=== PATIENT | female | born 1945 | race Caucasian/White ===

== ENCOUNTER → 2017-09-20 | Outpatient (CLI) | payer OTHER ==
[~2017-09-20] VITALS: Ht 152.4 cm; Wt 86.6 kg
[~2017-09-20] MED LIST: ASPIR 8181 MG PO; CALCIUM500 MG PO; DULCOLAX5 MG PO; FIBER500 MG PO; HYDRALAZINE 2525 MG PO; IRON325 PO; KEPPRA 500 MG500 M1 PO; LAMICTAL100 MG PO; OXYBUTYNIN CHLO15 MG PO; PLAVIX 75 MG TA75 M1 PO; PROBIOTIC1 EAC1 PO; SERTRALINE HCL100 MG PO; SIMVASTATIN40 MG PO; SYNTHROID75 MCG PO; VITAMIN B-12500 MCG PO; VITAMIN D-32000 UNIT PO
--- NOTE | ~2017-09-20 | S ---
[facility] [place] [address] SURGICAL PATH RPT PROCEDURE Name: RANDY LARKIN Room #: REG [facility].#: [id number] Admission: 09/20/17 Date of : 43 Discharge: Report #: [id number] Path Case #: [id number] PATHOLOGY REPORT COLLECTION DATE: 09/20/2017 RECEIVED DATE: 09/20/2017 SUBMITTING PHYS: Dr. Zohaib Edward OTHER PHYS: Dr. Shadia Roach SPECIMEN(S) RECEIVED: A.Transverse polyp B.Descending polyp * * * * * * * * * * * * FINAL DIAGNOSIS: A. Colonic mucosa "transverse polyp biopsy": - Tubular adenoma. - There is no evidence of high-grade dysplasia or malignancy. B. Colonic mucosa "descending polyp biopsy": - Tubular adenoma. - There is no evidence of high-grade dysplasia or malignancy. (SHA:pit; 09/23/2017) PATHOLOGIST: Humphrey Jerez M.D. REPORT ELECTRONICALLY SIGNED BY: Humphrey Jerez M.D. DATE/TIME: 09/23/2017 08:59 * * * * * * * * * * * * GROSS PATHOLOGY: A. Received in formalin labeled "Randy Larkin BX of polyp at transverse colon," is a segment of auguste soft tissue measuring 0.3 cm in maximum dimension. The specimen is submitted entirely in cassette A1. B. Received in formalin labeled "Randy Larkin BX of polyp at descending colon," is a segment of auguste soft tissue measuring 0.2 cm in maximum dimension. The specimen is submitted entirely in cassette B1. (TSD; 09/20/2017) CLINICAL HISTORY: Pre-OP DX: Hx of polyp Post-OP DX: Colon polyps INITIAL CPT CODE(S): A; [address] [facility] [place] [address] SURGICAL PATH RPT PROCEDURE Name: TRAERANDY LARA Room #: REG [facility]#: [id number] Admission: 09/20/17 Date of : 43 Discharge: Report #: [id number] Path Case #: [id number]; [id number] Professional services performed by [facility] [address], [place] [address] Technical services performed by [facility] at [address] [place] [address], [place] [address]. [facility] [address] [place] [address] PHONE: [phone] DIRECTOR: Andrew Chavarria M.D. * * * END OF REPORT * * *
--- NOTE | ~2017-09-20 | P ---
[facility] [place] [address] PROCEDURE REPORT Name: RANDY LARKIN Room #: REG [facility].#: [id number] Admission: 09/20/17 Attend Phys: Zohaib Morocho Discharge: Date of : 43 Report #: [id number] THIS REPORT FOR: //name// CC: Zohaib Plascencia MD DATE OF SERVICE: 09/20/2017 PROCEDURE PERFORMED: Colonoscopy with biopsies. HISTORY OF PRESENT ILLNESS: The patient is a 71-year-old female, apparently had last colonoscopy with polyps in [place] 5 years ago. She is here for a 5-year followup. She denies any symptoms. No family history of colon cancer. DESCRIPTION OF PROCEDURE: The risks and benefits of the procedure were explained to the patient, those risks including but not limited to bleeding, perforation, the risk of sedation. She understood these risks and gave informed consent. Sedation was given using propofol per anesthesia. Next, a digital rectal exam was initially performed, which showed external hemorrhoids, otherwise normal. Next, using a standard Fujinon colonoscope, the scope was placed in the patient's anus and advanced under direct vision to the cecum. The overall prep was excellent. The cecum and ileocecal valve were normal in appearance. The ascending colon was normal. In the transverse colon, a 4 mm sessile polyp was noted. This was removed with cold forceps, otherwise normal. In the descending colon, a 3 mm sessile polyp also removed with cold forceps. A few scattered diverticula were noted in the sigmoid colon, also noted was a surgical anastomosis. Apparently, the patient has had a previous surgery of partial colon resection. This has well healed and widely patent. The rectal mucosa was normal. On retroflexion, small nonbleeding internal hemorrhoids were noted. The scope was then withdrawn and the procedure terminated. The patient tolerated the procedure well. IMPRESSION: 1. Two small colonic polyps. 2. Sigmoid diverticulosis. 3. Surgical anastomosis noted. 4. Internal and external hemorrhoids. RECOMMENDATIONS: 1. Await biopsy results. 2. If polyps are hyperplastic, repeat in 10 years; if adenomatous polyp, repeat in 5 years. [facility] [address] [place] [address] PROCEDURE REPORT Name: RANDY LARKIN Room #: REG [facility].#: [id number] Admission: 09/20/17 Attend Phys: Zohaib Morocho Discharge: Date of : 43 Report #: [id number] Thank you for allowing me to participate in her care. <ELECTRONICALLY SIGNED> By: Zohaib Edward MD 09/30/17 [id number] Zohaib Edward MD /nt
== END ==
LOC: GI 08:13
DX: Z09 Encounter for follow-up examination after completed treatment for conditions other than malignant neoplasm (principal); Z86.010 Personal history of colon polyps; K57.30 Diverticulosis of large intestine without perforation or abscess without bleeding; Z90.49 Acquired absence of other specified parts of digestive tract; K64.8 Other hemorrhoids; K64.4 Residual hemorrhoidal skin tags; D12.3 Benign neoplasm of transverse colon; D12.4 Benign neoplasm of descending colon
CPT/HCPCS: 62110; 62900

== ENCOUNTER → 2019-09-10 | Outpatient (CLI) | payer OTHER | END | disposition home or self-care (01) | LOC: SJCVCIMAG 10:23 | DX: I10 Essential (primary) hypertension (principal); I25.10 Atherosclerotic heart disease of native coronary artery without angina pectoris; R94.31 Abnormal electrocardiogram [ECG] [EKG]; E78.00 Pure hypercholesterolemia, unspecified; Z79.82 Long term (current) use of aspirin; Z79.899 Other long term (current) drug therapy ==